=== PATIENT | female | born 1935 | race Caucasian/White ===

== ENCOUNTER 2021-04-09 18:08 | Emergency (ER) | payer MEDICARE, OTHER ==
[2021-04-09] MEDS ORDERED: Cephalexin 500 MG Cap PO ONE (19:33)
== END 2021-04-09 19:55 | disposition home or self-care (01) ==
LOC: FB.ED 18:08
DX: L03.116 Cellulitis of left lower limb (principal); I48.91 Unspecified atrial fibrillation; J44.9 Chronic obstructive pulmonary disease, unspecified; Z87.891 Personal history of nicotine dependence; Z88.2 Allergy status to sulfonamides; Z91.030 Bee allergy status
CPT/HCPCS: 36415; 80053; 83735; 85025; 86140; 99283; A9270

== ENCOUNTER 2021-09-29 14:48 | Emergency (ER) | payer MEDICARE, OTHER ==
[2021-09-29] MEDS ORDERED: Sodium Chloride 0.9% 10 ML Syringe FLUSH PRN (15:06)
[2021-09-29] MEDS ORDERED: Dexamethasone 4 MG/ML SDV IVPUSH ONE (15:10)
[2021-09-29] MEDS ORDERED: Diltiazem 25 MG/5 ML SDV IVPUSH ONE ×2 (15:10→16:16)
[2021-09-29] MEDS: Sodium Chloride 0.9% 1,000 ML IV SCH ×2 (15:30→16:15)
[2021-09-29] MEDS: Sodium Chloride 0.9% 500 ML IV ONE ×2 (15:40→16:15)
[2021-09-29] MEDS ORDERED: Ondansetron 4 MG/2 ML SDV IVPUSH ONE (15:44)
[2021-09-29] MEDS ORDERED: Acetaminophen 500 MG Tab PO ONE (15:44)
[2021-09-29 15:51] LABS: ESTIMATED GFR 55 mL/min (>60)
[2021-09-29 15:56] LABS: BASE EXCESS VENOUS,POC 2 mmol/L (-2 - 3+); PCO2 VENOUS,POC 37 mmHg (41-51); PH VENOUS,POC 7.45 pH Units (7.32-7.43)
[2021-09-29] MEDS ORDERED: Diltiazem 125 MG in Sodium Chloride 0.9% 100 ML IV SCH (16:30)
[2021-09-29] MEDS ORDERED: Sodium Chloride 0.9% 250 ML IV ONE ×2 (16:42→17:50)
== END 2021-09-29 18:45 ==
LOC: FB.ED 14:48
DX: U07.1 COVID-19 (principal); J12.82 Pneumonia due to coronavirus disease 2019; A41.9 Sepsis, unspecified organism; I48.91 Unspecified atrial fibrillation; J96.01 Acute respiratory failure with hypoxia; R06.02 Shortness of breath; J44.9 Chronic obstructive pulmonary disease, unspecified; I10 Essential (primary) hypertension; Z91.030 Bee allergy status; Z88.2 Allergy status to sulfonamides; Z79.899 Other long term (current) drug therapy; Z87.891 Personal history of nicotine dependence
CPT/HCPCS: 36415; 71045; 80053; 83605; 83735; 83880; 84484; 85025; 86140; 87040; 93005; 93010; 96361; 96365; 96375; 96376; 99284; 99285-25; A9270-GY; J1100; J2405; J3490; J7030; J7040

== ENCOUNTER 2024-04-12 11:10 | Emergency (ER) | payer MEDICARE, OTHER ==
[2024-04-12] MEDS ORDERED: traMADol 50 MG Tab PO ONE (11:11)
[2024-04-12 11:55] LABS: HEMATOCRIT 29.7 % (34.2-48.2); HEMOGLOBIN 9.6 g/dL (11.4-15.5); MEAN CORPUSCULAR HEMOGLOBIN 27.6 pg (23.9-33.9); MEAN CORPUSCULAR HGB CONC 32.5 g/dL (31.9-34.8); MEAN CORPUSCULAR VOLUME 85.1 fL (76.7-100.5); MEAN PLATELET VOLUME 8.4 fL (7.1-12.4); PLATELET COUNT,PLT 191 x10(3)uL (151-488); RED BLOOD CELL COUNT 3.49 x10(6)uL (3.60-5.20); RED CELL DISTRIBUTION WIDTH 15.7 % (12.3-16.5); WHITE BLOOD CELL COUNT,WBC 7.7 x10-3/uL (3.0-10.3)
[2024-04-12 11:57] LABS: BLOOD UREA NITROGEN,BUN 14 mg/dL (7-18); BUN/CREATININE RATIO 12.7 (9-20); CALCIUM 8.5 mg/dL (8.6-10.2); CARBON DIOXIDE,CO2 32 mmol/L (21-32); CHLORIDE,CL 101 mmol/L (100-110); CREATININE 1.1 mg/dL (0.55-1.02); EST CRCL DRUG DOSING (CG) 30.53 mL/min; ESTIMATED GFR 48 mL/min (>60); GLUCOSE RANDOM 89 mg/dL (80-116); POTASSIUM,K 3.3 mmol/L (3.5-5.3); SODIUM,NA 137 mmol/L (135-145)
[2024-04-12 12:03] LABS: A/G RATIO 0.8; ALANINE AMINOTRANSFERASE,ALT 16 U/L (12-36); ALBUMIN 2.7 g/dL (3.2-4.6); ALKALINE PHOSPHATASE 77 IU/L (56-112); ASPARTATE AMNIOTRANSFERASE,AST 21 IU/L (5-25); BILIRUBIN TOTAL 0.4 mg/dL (0.1-1.3); PROTEIN TOTAL,TP 6.2 g/dL (6.0-8.0)
[2024-04-12] MEDS: Cyclobenzaprine 10 MG Tab PO ONE (12:08)
[2024-04-12] MEDS: Ketorolac 30 MG/ML SDV IVPUSH ONE (12:09)
[2024-04-12 12:13] LABS: LYMPHOCYTES PERCENT MAN 13 % (13-37); MONOCYTES PERCENT MAN 14 % (4-12); SEG NEUTROPHILS PERCENT MAN 73 % (46-82)
[2024-04-12] MEDS: Potassium Chloride 20 MEQ Tab.ER PO ONE (13:51)
[2024-04-12 14:37] LABS: BILIRUBIN,URINE NEGATIVE (NEGATIVE); GLUCOSE,URINE NORMAL (NORMAL); KETONES,URINE 15 mg/dL (NEGATIVE); LEUKOCYTE ESTERASE,URINE NEGATIVE (NEGATIVE); NITRITE,URINE NEGATIVE (NEGATIVE); OCCULT BLOOD,URINE NEGATIVE (NEGATIVE); PROTEIN,URINE NEGATIVE (NEGATIVE); UROBILINOGEN,URINE NORMAL (NEGATIVE)
[2024-04-12 14:44] LABS: APPEARANCE,URINE CLEAR (CLEAR); COLOR,URINE YELLOW (YELLOW)
[2024-04-12] MEDS: Diltiazem 25 MG/5 ML SDV IVPUSH ONE (15:36)
[2024-04-12] MEDS: Sodium Chloride 0.9% 500 ML IV ONE (15:48)
== END 2024-04-12 18:00 | disposition home or self-care (01) ==
LOC: FB.ED 11:10
DX: M54.50 Low back pain, unspecified (principal); I10 Essential (primary) hypertension; I48.91 Unspecified atrial fibrillation; J44.9 Chronic obstructive pulmonary disease, unspecified; Z79.51 Long term (current) use of inhaled steroids; Z79.899 Other long term (current) drug therapy; Z79.01 Long term (current) use of anticoagulants; Z79.52 Long term (current) use of systemic steroids; Z79.1 Long term (current) use of non-steroidal anti-inflammatories (NSAID); Z88.2 Allergy status to sulfonamides; Z91.030 Bee allergy status
CPT/HCPCS: 36415; 51702; 72131; 80053; 81003; 83735; 84443; 85025; 96361; 96365; 96375; 99284; A9270; J1885; J3490; J7040

== ENCOUNTER 2024-05-21 15:46 | Emergency (ER) | payer MEDICARE, OTHER | END 2024-05-21 16:48 | disposition home or self-care (01) | LOC: FB.ED 15:46 | DX: K59.00 Constipation, unspecified (principal); I10 Essential (primary) hypertension; I48.91 Unspecified atrial fibrillation; J44.9 Chronic obstructive pulmonary disease, unspecified; Z87.891 Personal history of nicotine dependence; Z91.030 Bee allergy status; Z88.2 Allergy status to sulfonamides; Z79.51 Long term (current) use of inhaled steroids; Z79.899 Other long term (current) drug therapy; Z79.01 Long term (current) use of anticoagulants | CPT/HCPCS: 74019; 99283 ==

== ENCOUNTER 2024-06-22 07:31 | Emergency (ER) | payer MEDICARE, OTHER ==
[2024-06-22 08:29] LABS: BASOPHILS PERCENT AUTO 0.5 % (0.2-1.5); EOSINOPHILS ABSOLUTE AUTO 0.2 x10-3/uL (0.0-0.8); EOSINOPHILS PERCENT AUTO 2.5 % (0.6-8.1); HEMATOCRIT 35.6 % (34.2-48.2); HEMOGLOBIN 11.5 g/dL (11.4-15.5); LYMPHOCYTES PERCENT AUTO 11.3 % (18.4-52.1); MEAN CORPUSCULAR HEMOGLOBIN 27.5 pg (23.9-33.9); MEAN CORPUSCULAR HGB CONC 32.2 g/dL (31.9-34.8); MEAN CORPUSCULAR VOLUME 85.2 fL (76.7-100.5); MEAN PLATELET VOLUME 8.1 fL (7.1-12.4); MONOCYTES ABSOLUTE AUTO 1.1 x10-3/uL (0.3-1.0); MONOCYTES PERCENT AUTO 11.4 % (4.4-15.7); NEUTROPHILS ABSOLUTE AUTO 6.8 x10-3/uL (1.5-6.3); NEUTROPHILS PERCENT AUTO 74.3 % (30.8-76.2); PLATELET COUNT,PLT 315 x10(3)uL (151-488); RED CELL DISTRIBUTION WIDTH 16.7 % (12.3-16.5); WHITE BLOOD CELL COUNT,WBC 9.2 x10-3/uL (3.0-10.3)
[2024-06-22 08:34] LABS: BLOOD UREA NITROGEN,BUN 24 mg/dL (7-18); CARBON DIOXIDE,CO2 34 mmol/L (21-32); CHLORIDE,CL 100 mmol/L (100-110); CREATININE 1.2 mg/dL (0.55-1.02); EST CRCL DRUG DOSING (CG) 27.98 mL/min; ESTIMATED GFR 44 mL/min (>60); GLUCOSE RANDOM 104 mg/dL (80-116); POTASSIUM,K 3.2 mmol/L (3.5-5.3); SODIUM,NA 141 mmol/L (135-145)
[2024-06-22] MEDS: Albuterol/Ipratropium 3.0-0.5 MG/3 ML Neb Soln NEB ONE (08:34)
[2024-06-22 08:43] LABS: BASE EXCESS VENOUS,POC 5 mmol/L (-2 - 3+); PCO2 VENOUS,POC 53 mmHg (41-51); PH VENOUS,POC 7.38 pH Units (7.32-7.43)
[2024-06-22 08:46] LABS: ALANINE AMINOTRANSFERASE,ALT 21 U/L (12-36); ALBUMIN 3.9 g/dL (3.2-4.6); ALKALINE PHOSPHATASE 115 IU/L (56-112); ASPARTATE AMNIOTRANSFERASE,AST 25 IU/L (5-25); BILIRUBIN TOTAL 0.2 mg/dL (0.1-1.3)
[2024-06-22 08:47] LABS: TROPONIN I 26.9 pg/mL (4.0-60.3)
[2024-06-22] MEDS: LORazepam 2 MG/ML SDV IVPUSH ONE (08:47)
[2024-06-22] MEDS: Diltiazem 25 MG/5 ML SDV IVPUSH ONE (08:51)
[2024-06-22 08:56] LABS: BILIRUBIN,URINE NEGATIVE (NEGATIVE); GLUCOSE,URINE NORMAL (NORMAL); KETONES,URINE NEGATIVE (NEGATIVE); LEUKOCYTE ESTERASE,URINE NEGATIVE (NEGATIVE); NITRITE,URINE NEGATIVE (NEGATIVE); OCCULT BLOOD,URINE NEGATIVE (NEGATIVE); PROTEIN,URINE TRACE mg/dL (NEGATIVE); UROBILINOGEN,URINE NORMAL (NEGATIVE)
[2024-06-22] MEDS: Sodium Chloride 0.9% 1,000 ML IV ONE (08:57)
[2024-06-22 08:59] LABS: APPEARANCE,URINE CLEAR (CLEAR); BACTERIA,URINE FEW (NS); COLOR,URINE YELLOW (YELLOW); SQUAMOUS EPITHELIAL CELLS,UR OCCASIONAL (NS,R,O); WBC,URINE 0-5 (0-5)
[2024-06-22 09:01] LABS: RED BLOOD CELL COUNT 4.17 x10(6)uL (3.60-5.20)
[2024-06-22] MEDS: methylPREDNISolone Sodium Succinate 125 MG/2 ML SDV IVPUSH ONE (09:07)
[2024-06-22 09:10] LABS: INFLUENZA A NAA NEGATIVE (NEGATIVE); INFLUENZA B NAA NEGATIVE (NEGATIVE); RESPIRATORY SYNCYTIAL VIR NAA NEGATIVE (NEGATIVE)
[2024-06-22 09:11] LABS: CORONAVIRUS COVID-19 NAA NEGATIVE (NEGATIVE)
[2024-06-22] MEDS: Potassium Chloride 20 MEQ Tab.ER PO ONE (09:14)
[2024-06-22] MEDS: Diltiazem 125 MG in Sodium Chloride 0.9% 100 ML IV SCH (10:16)
[2024-06-22 10:19] LABS: BASE EXCESS VENOUS,POC 6 mmol/L (-2 - 3+); PCO2 VENOUS,POC 56 mmHg (41-51); PH VENOUS,POC 7.37 pH Units (7.32-7.43)
[2024-06-22] MEDS: Albuterol 0.083% 2.5 MG/3 ML Neb Soln NEB ONE ×2 (10:40→12:03)
[2024-06-22] MEDS: cefTRIAXone 2 GM Vial IVPUSH ONE (11:48)
[2024-06-22 13:18] LABS: BASE EXCESS VENOUS,POC 5 mmol/L (-2 - 3+); PCO2 VENOUS,POC 51 mmHg (41-51); PH VENOUS,POC 7.39 pH Units (7.32-7.43)
== END 2024-06-22 14:36 ==
LOC: FB.ED 07:31
DX: J96.01 Acute respiratory failure with hypoxia (principal); J96.02 Acute respiratory failure with hypercapnia; J44.1 Chronic obstructive pulmonary disease with (acute) exacerbation; I48.91 Unspecified atrial fibrillation; R39.2 Extrarenal uremia; E87.6 Hypokalemia; R79.89 Other specified abnormal findings of blood chemistry; R79.82 Elevated C-reactive protein (CRP); I10 Essential (primary) hypertension; Z79.899 Other long term (current) drug therapy; Z91.013 Allergy to seafood; Z88.2 Allergy status to sulfonamides
CPT/HCPCS: 0241U; 36415; 71045; 80053; 81001; 83605; 83735; 83880; 84484; 85025; 86140; 93005; 94640; 96361; 96365; 96366; 96375; 96376; 99285; A9270; J0696; J2060; J2919; J3490; J7030